=== PATIENT | male | born 1955 | race Caucasian/White ===

== ENCOUNTER 2019-01-06 12:51 | Emergency (ER) | payer SELFPAY ==
[~2019-01-06] VITALS: Ht 172.7 cm; Wt 90.0 kg
[~2019-01-06 12:51] MED LIST: ALBU8.5H5 IH; AMOX1TAB61 PO; ASPI-831 PO; AZIT250T13 PO; BENA10TA4 PO; CARV3.12 PO; DOCU-144 PO; FURO-109 PO; NITR0.4T39 SL; POTA20TA96 PO; SIMV5TAB14 PO
[2019-01-06 13:10] VITALS: Ht 172.7 cm; Wt 90.0 kg
[2019-01-06] MEDS ORDERED: ACETAMINOPHEN 500 MG TAB PO STA (13:32)
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
[2019-01-06 15:00] VITALS: BP 135/87; PULSE 71; RESP 20
== END 2019-01-06 15:10 | disposition home or self-care (01) ==
LOC: E/R 12:51
DX: R07.9 Chest pain, unspecified (principal); I11.0 Hypertensive heart disease with heart failure; I50.9 Heart failure, unspecified; Z79.01 Long term (current) use of anticoagulants; Z79.82 Long term (current) use of aspirin; Z95.0 Presence of cardiac pacemaker
CPT/HCPCS: 71045; 80048; 81001; 84484; 85025; 85610